=== PATIENT | male | born 1995 | race Hispanic/Latino ===

== ENCOUNTER 2017-08-27 08:52 | Emergency (ER) | payer OTHER ==
[2017-08-27 09:25] LABS: Basophils # (Auto) 0.1 K/mm3 (0.0-0.1); Basophils % (Auto) 0.4 % (0.0-1.8); Eosinophils # (Auto) 0.2 K/mm3 (0.0-0.4); Eosinophils % (Auto) 1.5 % (0.0-4.3); Hematocrit 46.3 % (35.5-45.6); Hemoglobin 15.5 gm/dl (11.8-15.2); Lymphocytes # (Auto) 1.2 K/mm3 (1.2-5.4); Lymphocytes % (Auto) 9.1 % (13.4-35.0); Mean Corpuscular HGB Conc 33 % (32-34); Mean Corpuscular Hemoglobin 30 pg (28-32); Mean Corpuscular Volume 89 fl (84-94); Monocytes # (Auto) 0.4 K/mm3 (0.0-0.8); Monocytes % (Auto) 3.1 % (0.0-7.3); Platelet Count 331 K/mm3 (140-440); Red Blood Count 5.19 M/mm3 (3.65-5.03); Red Cell Distribution Width 13.7 % (13.2-15.2)
[2017-08-27 09:35] LABS: Bacteria,Urine 1+ /HPF (Negative); Bilirubin,Urine NEG (Negative); Blood,Urine LG (Negative); Color,Urine Yellow (Yellow); Mucus,Urine 3+ /HPF; Nitrite,Urine NEG (Negative)
[2017-08-27 09:39] LABS: RBC,Urine > 182.0 /HPF (0.0-6.0)
[2017-08-27 09:51] LABS: Alanine Aminotransferase 18 units/L (7-56); Albumin 4.8 g/dL (3.9-5); BUN/Creatinine Ratio 11; Blood Urea Nitrogen 9 mg/dL (9-20); Calcium 9.8 mg/dL (8.4-10.2); Hemolysis Index 14; Lipase 25 units/L (13-60)
[2017-08-27 10:46] VITALS: BP 120/77
--- NOTE | 2017-08-27 10:53 | Emergency Department Report ---
ED Abdominal Pain HPI - General Chief Complaint: Abdominal Pain Stated Complaint: LEFT FLANK PAIN/VOMITING Source: patient Mode of arrival: Ambulatory Limitations: No Limitations - History of Present Illness Initial Comments: Left Flank pain that started this morning at 6:00 am. No history of this before. Also had three episodes of vomiting [employer] and one here. He had tried to eat a sausage biscuit this morning before the vomiting. His last meal prior to that was last night. His last BM was this morning. He has not taken anything to relieve the pain and cannot specify what makes it better or worse. MD Complaint: flank pain (Left ) - Related Data Previous Rx's Medication Instructions Recorded Last Taken Type Ciprofloxacin HCl [Ciprofloxacin 500 mg PO BID #14 tablet 08/27/17 Unknown Rx TAB] Allergies Allergy/AdvReac Type Severity Reaction Status Date / Time ketorolac tromethamine Allergy Hives Verified 06/10/15 00:12 [From Toradol] tramadol Allergy Hives Verified 06/10/15 00:12 ED Review of Systems ROS: Stated complaint: LEFT FLANK PAIN/VOMITING Other details as noted in HPI Comment: All other systems reviewed and negative Constitutional: denies: chills, fever Eyes: denies: eye pain, eye discharge, vision change ENT: denies: ear pain, throat pain Respiratory: denies: cough, shortness of breath, wheezing Cardiovascular: denies: chest pain, palpitations Endocrine: no symptoms reported Gastrointestinal: vomiting. denies: abdominal pain, nausea, diarrhea Genitourinary: denies: urgency, dysuria Musculoskeletal: denies: back pain, joint swelling, arthralgia Skin: denies: rash, lesions Neurological: denies: headache, weakness, paresthesias Psychiatric: denies: anxiety, depression Hematological/Lymphatic: denies: easy bleeding, easy bruising ED Past Medical Hx - Past Medical History Previous Medical History?: Yes Hx Kidney Stones: Yes - Surgical History Past Surgical History?: Yes Additional Surgical History: foot surgery - Social History Smoking Status: Never Smoker Substance Use Type: Non Opiate Pain - Medications Home Medications: Home Medications Medication Instructions Recorded Confirmed Last Taken Type Ciprofloxacin HCl [Ciprofloxacin 500 mg PO BID #14 tablet 08/27/17 Unknown Rx TAB] ED Physical Exam - General Limitations: No Limitations General appearance: alert, in no apparent distress - Head Head exam: Present: atraumatic, normocephalic - Eye Eye exam: Present: normal appearance - ENT ENT exam: Present: mucous membranes moist - Neck Neck exam: Present: normal inspection - Respiratory Respiratory exam: Present: normal lung sounds bilaterally. Absent: respiratory distress - Cardiovascular Cardiovascular Exam: Present: regular rate, normal rhythm. Absent: systolic murmur, diastolic murmur, rubs, gallop - GI/Abdominal GI/Abdominal exam: Present: soft, tenderness (LUQ), normal bowel sounds. Absent : distended, guarding, rebound, rigid, hyperactive bowel sounds, hypoactive bowel sounds, organomegaly, mass, bruit, pulsatile mass, hernia - Rectal Rectal exam: Present: deferred - Extremities Exam Extremities exam: Present: normal inspection - Back Exam Back exam: Present: normal inspection, CVA tenderness (L) - Neurological Exam Neurological exam: Present: alert, oriented X3 - Psychiatric Psychiatric exam: Present: normal affect, normal mood - Skin Skin exam: Present: warm, dry, intact, normal color. Absent: rash ED Course Vital Signs 08/27/17 08/27/17 08:59 10:45 Temperature 98.5 F 98.9 F Pulse Rate 77 68 Respiratory 22 18 Rate Blood Pressure 152/105 Blood Pressure 120/77 [Left] O2 Sat by Pulse 99 99 Oximetry ED Medical Decision Making - Lab Data Result diagrams: 08/27/17 09:13 08/27/17 09:13 - Medical Decision Making Renal Stone UTI STD - Differential Diagnosis UTI, Pyelonephritis Critical Care Time: No Critical care attestation.: If time is entered above; I have spent that time in minutes in the direct care of this critically ill patient, excluding procedure time. ED Disposition Clinical Impression: Pyelonephritis Disposition: - TO HOME OR SELFCARE Is pt being admited?: No Does the pt Need Aspirin: No Condition: Stable Instructions: Urinary Tract Infection in Men (ED) Prescriptions: Ciprofloxacin HCl [Ciprofloxacin TAB] 500 mg PO BID #14 tablet Referrals: AMOS HOOKS MD [Primary Care Provider] - 3-5 Days Time of Disposition: 11:03
[2017-08-27] MEDS ORDERED: XYLOCAINE 1% MPF 5 mL INFILTRATI ONE (11:07)
[2017-08-27] MEDS ORDERED: ROCEPHIN IM ONE (11:07)
== END 2017-08-27 11:47 | disposition home or self-care (01) ==
LOC: ED 08:52
DX: N12 Tubulo-interstitial nephritis, not specified as acute or chronic (principal); N39.0 Urinary tract infection, site not specified
CPT/HCPCS: 36415; 80053; 81001; 83690; 85025; 96372; 99283; J0696

== ENCOUNTER 2018-02-15 20:57 | Emergency (ER) | payer OTHER ==
[2018-02-15] MEDS ORDERED: MOTRIN PO ONE (21:57)
[2018-02-15 22:12] LABS: Basophils # (Auto) 0.1 K/mm3 (0.0-0.1); Basophils % (Auto) 0.5 % (0.0-1.8); Eosinophils # (Auto) 0.1 K/mm3 (0.0-0.4); Eosinophils % (Auto) 0.8 % (0.0-4.3); Hematocrit 41.3 % (35.5-45.6); Hemoglobin 14.1 gm/dl (11.8-15.2); Lymphocytes # (Auto) 1.6 K/mm3 (1.2-5.4); Lymphocytes % (Auto) 12.8 % (13.4-35.0); Mean Corpuscular HGB Conc 34 % (32-34); Mean Corpuscular Hemoglobin 30 pg (28-32); Mean Corpuscular Volume 88 fl (84-94); Monocytes # (Auto) 1.2 K/mm3 (0.0-0.8); Monocytes % (Auto) 9.5 % (0.0-7.3); Platelet Count 372 K/mm3 (140-440); Red Blood Count 4.67 M/mm3 (3.65-5.03); Red Cell Distribution Width 13.1 % (13.2-15.2)
[2018-02-15 22:26] LABS: BUN/Creatinine Ratio 9; Blood Urea Nitrogen 9 mg/dL (9-20); Calcium 9.4 mg/dL (8.4-10.2); Hemolysis Index 5
--- NOTE | 2018-02-16 | XRay Report ---
FINAL REPORT EXAM: XR CHEST ROUTINE 2V HISTORY: shortness of breath TECHNIQUE: 2 views of the chest. PRIORS: None. FINDINGS: The cardiomediastinal silhouette appears normal. The lungs are clear. The bones and soft tissues are unremarkable. IMPRESSION: No evidence of acute cardiopulmonary disease
--- NOTE | 2018-02-16 04:18 | Emergency Department Report ---
- General Chief Complaint: Upper Respiratory Infection Stated Complaint: FEVER, HEADACHE Time Seen by Provider: 02/16/18 03:58 Source: patient Mode of arrival: Ambulatory Limitations: No Limitations - History of Present Illness Initial Comments: 22-year-old male comes in complaining of fever and congestion and swollen glands for a week. Patient reports that he's been having a cough for a week as well. Patient reports she has no past medical history currently takes no medications on a daily basis. Patient is allergic to Toradol. His tried no [id number] medications. Except he's been taken aspirin for fever. MD Complaint: fever, cough, nasal congestion -: week(s) Severity scale (0 -10): 6 Consistency: intermittent Improves With: nothing Worsens With: nothing Associated Symptoms: fever, cough, chest pain Treatments Prior to Arrival: none - Related Data Previous Rx's Medication Instructions Recorded Last Taken Type Ciprofloxacin HCl [Ciprofloxacin 500 mg PO BID #14 tablet 08/27/17 Unknown Rx TAB] Benzonatate [Tessalon Perle] 100 mg PO TID #15 capsule 02/16/18 Unknown Rx Allergies Allergy/AdvReac Type Severity Reaction Status Date / Time ketorolac tromethamine Allergy Hives Verified 06/10/15 00:12 [From Toradol] tramadol Allergy Hives Verified 06/10/15 00:12 ED Review of Systems ROS: Stated complaint: FEVER, HEADACHE Other details as noted in HPI ED Past Medical Hx - Past Medical History Hx Kidney Stones: Yes - Surgical History Additional Surgical History: foot surgery - Social History Smoking Status: Never Smoker - Medications Home Medications: Home Medications Medication Instructions Recorded Confirmed Last Taken Type Ciprofloxacin HCl [Ciprofloxacin 500 mg PO BID #14 tablet 08/27/17 Unknown Rx TAB] Benzonatate [Tessalon Perle] 100 mg PO TID #15 capsule 02/16/18 Unknown Rx ED Physical Exam - General Limitations: No Limitations ED Course Vital Signs 02/15/18 02/15/18 21:22 21:52 Temperature 103.2 F H 103.2 F H Pulse Rate 120 H 116 H Respiratory 28 H 18 Rate Blood Pressure 127/76 127/76 O2 Sat by Pulse 99 96 Oximetry ED Medical Decision Making - Lab Data Result diagrams: 02/15/18 22:00 02/15/18 22:00 - Radiology Data Radiology results: report reviewed, image reviewed FINAL REPORT EXAM: XR CHEST ROUTINE 2V HISTORY: shortness of breath TECHNIQUE: 2 views of the chest. PRIORS: None. FINDINGS: The cardiomediastinal silhouette appears normal. The lungs are clear. The bones and soft tissues are unremarkable. IMPRESSION: No evidence of acute cardiopulmonary disease Transcribed By: JULIANNE Dictated By: BRITTANY MAC MD Electronically Authenticated By: BRITTANY MAC MD Signed Date/Time: 02/15/182355 DD/ 55 TD/TT: 02/15/182355 - Medical Decision Making Patient has been evaluated by this provider fast track. Chest x-ray shows no cardiopulmonary disease. CBC, CMP and blood cultures were obtained. Patient was given ibuprofen in triage for pain management and fever control. Patient reports that he feels much better after having the medication. Discussed the patient I will discharge him on a few Tessalon Perles to help with this cough. Discussed patient if his symptoms persist or gets worse he should follow-up with a primary care provider. Critical care attestation.: If time is entered above; I have spent that time in minutes in the direct care of this critically ill patient, excluding procedure time. ED Disposition Clinical Impression: Viral syndrome Disposition: DC-01 TO HOME OR SELFCARE Is pt being admited?: No Does the pt Need Aspirin: No Condition: Stable Instructions: Viral Syndrome (ED) Additional Instructions: Please continue taking Tylenol and Motrin for fever. Increase her fluid intake by 2 L. please take Tessalon Perles as needed for cough. If her symptoms persist or gets worse please follow-up with your primary care provider. Prescriptions: Benzonatate [Tessalon Perle] 100 mg PO TID #15 capsule Referrals: PRIMARY CAREMD [Primary Care Provider] - 3-5 Days Forms: Work/School Release Form(ED)
[2018-02-16 04:20] VITALS: BP 119/78
== END 2018-02-16 04:36 | disposition home or self-care (01) ==
LOC: ED 20:57
DX: B34.9 Viral infection, unspecified (principal); Z88.6 Allergy status to analgesic agent
CPT/HCPCS: 36415; 71046; 80048; 85025; 87040; 99284